=== PATIENT | male | born 1945 | race Caucasian/White ===

== ENCOUNTER 2018-02-13 08:31 | Emergency (ER) | payer OTHER ==
[~2018-02-13] VITALS: Ht 170.2 cm; Wt 99.8 kg
[~2018-02-13 08:31] MED LIST: ASPIR 8181 MG PO; BENADRYL25 MG PO; IBUPROFEN; LIPITOR40 MG PO; LOPRESSOR25 PO; NOHOMEMEDICATIONS; PAXIL
[2018-02-13 09:09] VITALS: BP 148/67
== END 2018-02-13 09:10 | disposition home or self-care (01) ==
LOC: M.ERS 08:31
DX: S05.02XA Injury of conjunctiva and corneal abrasion without foreign body, left eye, initial encounter (principal); F32.9 Major depressive disorder, single episode, unspecified; Z88.1 Allergy status to other antibiotic agents; X58.XXXA Exposure to other specified factors, initial encounter; Y93.89 Activity, other specified; Y92.89 Other specified places as the place of occurrence of the external cause; Y99.8 Other external cause status

== ENCOUNTER → 2018-04-13 | Outpatient (CLI) | payer OTHER ==
--- NOTE | 2018-04-13 17:49 | 2DMMODE ---
[place] [address] 2 D/M-MODE ECHOCARDIOGRAM Name: DALE RAMIREZ Room: [facility]#: [id number] Admission: 04/13/18 Attend Phys: Sohan Chester Discharge: Date of : 41 Date of Service: 04/13/18 1748 Report #: [id number] THIS REPORT FOR: //name// APPROVED REPORT Study performed: 04/13/2018 12:31:17 EXAM: Comprehensive 2D, Doppler, and color-flow Echocardiogram Patient Location: Out-Patient Status: routine BSA: 2.02 HR: 62 bpm BP: 127/64 mmHg Other Information Study Quality: Good Indications CAD 2D Dimensions LVEF(%): 69.33 (>50%) IVSd: 11.14 (7-11mm) LVOT Diam: 20.81 (18-24mm) LVDd: 44.02 mm PWd: 10.21 (7-11mm) Ascending Ao: 32.56 (22-36mm) LVDs: 26.97 (25-40mm) Aortic Root: 34.63 mm Argueta's LVEF: 69.33 % Volumes Left Atrial Volume (Systole) LA ESV Index: 12.70 mL/m2 Aortic Valve AoV Peak Surya.: 1.49 m/s AO Peak Gr.: 8.82 mmHg LVOT Max P.15 mmHg AO Mean Gr.: 5.03 mmHg LVOT Mean P.66 mmHg LVOT Max V: 0.89 m/s AO V2 VTI: 29.24 cm LVOT Mean V: 0.60 m/s MEERA (VTI): 2.24 cm2 LVOT V1 VTI: 19.27 cm AI [place]: 1.44 m/s2 AI PHT: 835.33 [place] [address] 2 D/M-MODE ECHOCARDIOGRAM Name: DALE RAMIREZ Room: [facility]#: [id number] Admission: 04/13/18 Attend Phys: Sohan Chester Discharge: Date of : 41 Date of Service: 04/13/18 1748 Report #: [id number] E/A Ratio: 1.01 MV Decel. Time: 184.40 ms MV E Max Surya.: 0.74 m/s MV PHT: 53.48 ms MVA (PHT): 4.11 cm2 TDI E/Lateral E': 6.73 E/Medial E': 8.22 Medial E' Surya.: 0.09 m/s Lateral E' Surya.: 0.11 m/s Pulmonary Valve PV Peak Surya.: 0.86 m/s PV Peak Gr.: 2.99 mmHg Tricuspid Valve TR Peak Gr.: 19.83 mmHg RVSP: 24.80 mmHg Left Ventricle The left ventricle is normal size. There is normal LV segmental wall motion. There is normal left ventricular wall thickness. Left ventricular systolic function is normal. The left ventricular ejection fraction is within the normal range. LVEF is 55-60%. The left ventricular diastolic function is normal. Right Ventricle The right ventricle is normal size. The right ventricular systolic function is normal. Atria The left atrium size is normal. The right atrium size is normal. Aortic Valve The aortic valve is normal in structure. moderate aortic regurgitation. There is no aortic valvular stenosis. Mitral Valve The mitral valve is normal in structure. There is no mitral valve regurgitation noted. No evidence of mitral valve stenosis. Tricuspid Valve The tricuspid valve is normal in structure. Mild tricuspid regurgitation. The RVSP is _30 __ mmHg. Pulmonic Valve The pulmonary valve is normal in structure. [place] [address] 2 D/M-MODE ECHOCARDIOGRAM Name: DALE RAMIREZ Room: [facility]#: [id number] Admission: 04/13/18 Attend Phys: Sohan Chester Discharge: Date of : 41 Date of Service: 04/13/18 1748 Report #: [id number] valvular regurgitation. Great Vessels The aortic root is normal in size. IVC is normal in size and collapses with >50% inspiration Pericardium There is no pericardial effusion. <Conclusion> LVEF is 55-60%. moderate aortic regurgitation. <ELECTRONICALLY SIGNED> By: John Bose MD, [facility] 04/13/18 1748 [id number] John Bose MD, FACC /INF
== END ==
LOC: M.CRD 12:11
DX: I08.2 Rheumatic disorders of both aortic and tricuspid valves (principal); I25.10 Atherosclerotic heart disease of native coronary artery without angina pectoris; Z95.1 Presence of aortocoronary bypass graft

== ENCOUNTER → 2019-05-29 | Outpatient (CLI) | payer OTHER ==
--- NOTE | 2019-05-29 15:02 | 2DMMODE ---
[place] [address] 2 D/M-MODE ECHOCARDIOGRAM Name: JAMESDALE YUN Room: [facility]#: [id number] Admission: 05/29/19 Attend Phys: Amalia Ludwig Discharge: Date of : 41 Date of Service: 05/29/19 1502 Report #: [id number] THIS REPORT FOR: //name// APPROVED REPORT Study performed: 05/29/2019 10:44:37 EXAM: Comprehensive 2D, Doppler, and color-flow Echocardiogram Patient Location: Out-Patient BSA: 2.06 HR: 58 bpm BP: 127/64 mmHg Other Information Study Quality: Good Indications Aortic Valve Disease 2D Dimensions IVSd: 10.52 (7-11mm) LVOT Diam: 20.17 (18-24mm) LVDd: 49.30 mm PWd: 10.39 (7-11mm) Ascending Ao: 29.40 (22-36mm) LVDs: 24.11 (25-40mm) Aortic Root: 28.80 mm Volumes Left Atrial Volume (Systole) LA ESV Index: 14.00 mL/m2 Aortic Valve AoV Peak Surya.: 1.46 m/s AO Peak Gr.: 8.53 mmHg LVOT Max P.32 mmHg AO Mean Gr.: 4.83 mmHg LVOT Mean P.41 mmHg LVOT Max V: 0.91 m/s AO V2 VTI: 34.42 cm LVOT Mean V: 0.53 m/s MEERA (VTI): 2.17 cm2 LVOT V1 VTI: 23.33 cm AI [place]: 1.83 m/s2 AI PHT: 735.22 ms Mitral Valve E/A Ratio: 0.62 MV Decel. Time: 221.70 ms MV E Max Surya.: 0.43 m/[place] [address] 2 D/M-MODE ECHOCARDIOGRAM Name: DALE RAMIREZ Room: [facility]#: [id number] Admission: 05/29/19 Attend Phys: Amalia Ludwig Discharge: Date of : 41 Date of Service: 05/29/19 1502 Report #: [id number] MV PHT: 64.29 ms MVA (PHT): 3.42 cm2 TDI E/Lateral E': 4.78 E/Medial E': 6.14 Medial E' Surya.: 0.07 m/s Lateral E' Surya.: 0.09 m/s Pulmonary Valve PV Peak Surya.: 0.75 m/s PV Peak Gr.: 2.22 mmHg Left Ventricle The left ventricle is normal size. There is normal LV segmental wall motion. There is normal left ventricular wall thickness. Left ventricular systolic function is normal. The left ventricular ejection fraction is within the normal range. LVEF is 55%. Grade I - abnormal relaxation pattern. Right Ventricle The right ventricle is normal size. The right ventricular systolic function is normal. Atria The left atrium size is normal. The right atrium size is normal. Aortic Valve Mild aortic valve sclerosis. Mild to moderate aortic regurgitation. There is no aortic valvular stenosis. Mitral Valve The mitral valve is normal in structure. Trace mitral regurgitation. No evidence of mitral valve stenosis. Tricuspid Valve The tricuspid valve is normal in structure. There is no tricuspid valve regurgitation noted. Pulmonic Valve The pulmonary valve is normal in structure. There is no pulmonic valvular regurgitation. Great Vessels The aortic root is normal in size. IVC is normal in size and collapses >50% [place] [address] 2 D/M-MODE ECHOCARDIOGRAM Name: DALE RAMIREZ Room: [facility]#: [id number] Admission: 05/29/19 Attend Phys: Amalia Ludwig Discharge: Date of : 41 Date of Service: 05/29/19 1502 Report #: [id number] Pericardium There is no pericardial effusion. <Conclusion> The left ventricle is normal size. There is normal left ventricular wall thickness. Left ventricular systolic function is normal. The left ventricular ejection fraction is within the normal range. LVEF is 55%. The right ventricle is normal size. The left atrium size is normal. Mild aortic valve sclerosis. Mild to moderate aortic regurgitation. There is no aortic valvular stenosis. The mitral valve is normal in structure. The tricuspid valve is normal in structure. IVC is normal in size and collapses >50% with inspiration. There is no pericardial effusion. There is normal LV segmental wall motion. <ELECTRONICALLY SIGNED> By: Naveen Chan MD, [facility] 05/29/19 1502 1502 1502 Naveen Chan MD, FACC /INF
== END ==
LOC: M.CRD 10:43
DX: I35.1 Nonrheumatic aortic (valve) insufficiency (principal); Z88.2 Allergy status to sulfonamides; Z91.048 Other nonmedicinal substance allergy status

== ENCOUNTER → 2019-09-12 | Outpatient (CLI) | payer OTHER | LOC: M.CT 11:03 | DX: R91.1 Solitary pulmonary nodule (principal) ==

== ENCOUNTER → 2020-08-14 | Outpatient (CLI) | payer OTHER ==
--- NOTE | 2020-08-14 13:17 | 2DMMODE ---
[place] [address] 2 D/M-MODE ECHOCARDIOGRAM Name: DALE RAMIREZ Room: [facility]#: [id number] Admission: 08/14/20 Attend Phys: Sohan Chester Discharge: Date of : 41 Date of Service: 08/14/20 1317 Report #: [id number] THIS REPORT FOR: cc: Kai Hernandez Steve T. DO Holkins,Naveen Arndt MD [facility] ~ APPROVED REPORT Study performed: 08/14/2020 10:48:16 EXAM: Comprehensive 2D, Doppler, and color-flow Echocardiogram Patient Location: Out-Patient BSA: 2.08 HR: 61 bpm BP: 120/80 mmHg Other Information Study Quality: Good Indications CAD 2D Dimensions IVSd: 11.67 (7-11mm) LVOT Diam: 20.53 (18-24mm) LVDd: 47.76 mm PWd: 11.67 (7-11mm) Ascending Ao: 29.98 (22-36mm) LVDs: 33.70 (25-40mm) Aortic Root: 33.04 mm Volumes Left Atrial Volume (Systole) LA ESV Index: 15.90 mL/m2 Aortic Valve AoV Peak Surya.: 1.50 m/s AO Peak Gr.: 8.97 mmHg LVOT Max P.58 mmHg AO Mean Gr.: 4.50 mmHg LVOT Mean P.67 mmHg LVOT Max V: 0.95 m/s AO V2 VTI: 30.18 cm LVOT Mean V: 0.59 m/s MEERA (VTI): 2.53 cm2 LVOT V1 VTI: 23.07 cm AI [place]: 1.98 m/s2 AI PHT: 597[place]01 [place] [address] 2 D/M-MODE ECHOCARDIOGRAM Name: DALE RAMIREZ Room: [facility]#: [id number] Admission: 08/14/20 Attend Phys: Sohan Chester Discharge: Date of : 41 Date of Service: 08/14/20 1317 Report #: [id number] Mitral Valve E/A Ratio: 0.67 MV Decel. Time: 209.27 ms MV E Max Surya.: 0.49 m/s MV PHT: 60.69 ms MVA (PHT): 3.63 cm2 TDI E/Lateral E': 5.44 E/Medial E': 7.00 Medial E' Surya.: 0.07 m/s Lateral E' Surya.: 0.09 m/s Pulmonary Valve PV Peak Surya.: 0.75 m/s PV Peak Gr.: 2.22 mmHg Left Ventricle The left ventricle is normal size. There is normal LV segmental wall motion. There is normal left ventricular wall thickness. Left ventricular systolic function is normal. The left ventricular ejection fraction is within the normal range. LVEF is 55%. Grade I - abnormal relaxation pattern. Right Ventricle The right ventricle is normal size. The right ventricular systolic function is normal. Atria The left atrium size is normal. The right atrium size is normal. Aortic Valve Mild aortic valve sclerosis. Mild aortic regurgitation. There is no aortic valvular stenosis. Mitral Valve The mitral valve is normal in structure. There is no mitral valve regurgitation noted. No evidence of mitral valve stenosis. Tricuspid Valve The tricuspid valve is normal in structure. There is no tricuspid valve regurgitation noted. Pulmonic Valve The pulmonary valve is normal in structure. There is no pulmonic [place] [address] 2 D/M-MODE ECHOCARDIOGRAM Name: DALE RAMIREZ Room: [facility]#: [id number] Admission: 08/14/20 Attend Phys: oShan Chester Discharge: Date of : 41 Date of Service: 08/14/20 1317 Report #: [id number] Great Vessels The aortic root is normal in size. IVC is normal in size and collapses >50% with inspiration. Pericardium There is no pericardial effusion. <Conclusion> The left ventricle is normal size. There is normal left ventricular wall thickness. Left ventricular systolic function is normal. The left ventricular ejection fraction is within the normal range. LVEF is 55%. Grade I - abnormal relaxation pattern. The right ventricle is normal size. The left atrium size is normal. Mild aortic valve sclerosis. Mild aortic regurgitation. There is no aortic valvular stenosis. The mitral valve is normal in structure. The tricuspid valve is normal in structure. IVC is normal in size and collapses >50% with inspiration. There is no pericardial effusion. There is normal LV segmental wall motion. <ELECTRONICALLY SIGNED> By: Naveen Chan MD, FACC 08/14/20 1317 16 16 Naveen Chan MD, FACC /INF
== END ==
LOC: M.CRD 10:47
PROVIDERS: ATTEND Internal Medicine
DX: I35.1 Nonrheumatic aortic (valve) insufficiency (principal); I25.10 Atherosclerotic heart disease of native coronary artery without angina pectoris

== ENCOUNTER → 2021-08-27 | Outpatient (CLI) | payer OTHER ==
--- NOTE | 2021-08-27 14:37 | 2DMMODE ---
[place] [address] 2 D/M-MODE ECHOCARDIOGRAM Name: DALE RAMIREZ Room: [facility]#: [id number] Admission: 08/27/21 Attend Phys: Sohan Chester Discharge: Date of : 41 Date of Service: 08/27/21 1436 Report #: [id number] THIS REPORT FOR: cc: Kai Hernandez Steve T. DO Blick,John Carlisle MD [facility] ~ APPROVED REPORT Study performed: 08/27/2021 12:04:11 EXAM: Comprehensive 2D, Doppler, and color-flow Echocardiogram Patient Location: Out-Patient BSA: 2.10 HR: 58 bpm BP: 120/80 mmHg Other Information Study Quality: Good Indications CAD 2D Dimensions IVSd: 11.42 (7-11mm) LVOT Diam: 20.31 (18-24mm) LVDd: 50.64 mm PWd: 11.59 (7-11mm) Ascending Ao: 30.72 (22-36mm) LVDs: 31.62 (25-40mm) Aortic Root: 33.69 mm Volumes Left Atrial Volume (Systole) LA ESV Index: 17.40 mL/m2 Aortic Valve AoV Peak Surya.: 1.50 m/s AO Peak Gr.: 9.04 mmHg LVOT Max P.27 mmHg AO Mean Gr.: 5.42 mmHg LVOT Mean P.64 mmHg LVOT Max V: 0.90 m/s AO V2 VTI: 38.06 cm LVOT Mean V: 0.59 m/s MEERA (VTI): 1.84 cm2 LVOT V1 VTI: 21.68 cm AI [place]: 2.14 m/s2 AI PHT: 589.18 [place] [address] 2 D/M-MODE ECHOCARDIOGRAM Name: DALE RAMIREZ Room: [facility]#: [id number] Admission: 08/27/21 Attend Phys: Sohan Chester Discharge: Date of : 41 Date of Service: 08/27/21 1436 Report #: [id number] Mitral Valve E/A Ratio: 0.79 MV Decel. Time: 176.12 ms MV E Max Surya.: 0.63 m/s MV PHT: 51.07 ms MVA (PHT): 4.31 cm2 TDI E/Lateral E': 6.30 E/Medial E': 7.00 Medial E' Surya.: 0.09 m/s Lateral E' Surya.: 0.10 m/s Pulmonary Valve PV Peak Surya.: 0.83 m/s PV Peak Gr.: 2.74 mmHg Left Ventricle The left ventricle is normal size. There is normal LV segmental wall motion. Mild concentric left ventricular hypertrophy. Left ventricular systolic function is normal. The left ventricular ejection fraction is within the normal range. LVEF is 55-60%. Grade I - abnormal relaxation pattern. Right Ventricle The right ventricle is normal size. The right ventricular systolic function is normal. Atria The left atrium size is normal. The right atrium size is normal. Aortic Valve Mild aortic valve sclerosis. moderate aortic regurgitation. There is no aortic valvular stenosis. Mitral Valve The mitral valve is normal in structure. Trace mitral regurgitation. No evidence of mitral valve stenosis. Tricuspid Valve The tricuspid valve is normal in structure. There is no tricuspid valve regurgitation noted. Pulmonic Valve The pulmonary valve is normal in structure. There is trace pulmonic [place] [address] 2 D/M-MODE ECHOCARDIOGRAM Name: DALE RAMIREZ Room: [facility]#: [id number] Admission: 08/27/21 Attend Phys: Sohan Chester Discharge: Date of : 41 Date of Service: 08/27/21 1436 Report #: [id number] Great Vessels The aortic root is normal in size. IVC is normal in size and collapses >50% with inspiration. Pericardium There is no pericardial effusion. <Conclusion> Mild concentric left ventricular hypertrophy. LVEF is 55-60%. Mild aortic valve sclerosis. moderate aortic regurgitation. <ELECTRONICALLY SIGNED> By: John Bose MD, FACC 08/27/21 143 35 35 John Bose MD, FACC /INF
== END ==
LOC: M.CRD 10:45
PROVIDERS: ATTEND Internal Medicine
DX: I35.1 Nonrheumatic aortic (valve) insufficiency (principal); I25.10 Atherosclerotic heart disease of native coronary artery without angina pectoris; I10 Essential (primary) hypertension